=== PATIENT | female | born 1990 | race Caucasian/White ===

== ENCOUNTER 2017-07-13 08:44 | Emergency (ER) | payer MEDICAID, SELFPAY | END 2017-07-13 10:35 | disposition home or self-care (01) | LOC: MADERS 08:44 | DX: S50.362A Insect bite (nonvenomous) of left elbow, initial encounter (principal); S50.361A Insect bite (nonvenomous) of right elbow, initial encounter; F17.210 Nicotine dependence, cigarettes, uncomplicated; W57.XXXA Bitten or stung by nonvenomous insect and other nonvenomous arthropods, initial encounter | CPT/HCPCS: 99282 ==